=== PATIENT | female | born 1950 | race Hispanic/Latino ===

== ENCOUNTER → 2025-04-16 | Outpatient (REF) | payer MEDICARE ==
[~2025-04-16] MED LIST: ALENDRONATE SOD35 MG PO; OMEPRAZOLE20 M1 PO; Z.0.LISINOPRIL40 MG PO; Z.0.NORVASC5 MG PO; Z.0.SERTRALINE HCL50 PO; Z.0.SIMVASTATIN80 MG PO
== END ==
LOC: RAD 12:33
PROVIDERS: ATTEND Family Medicine
DX: M75.102 Unspecified rotator cuff tear or rupture of left shoulder, not specified as traumatic (principal)